=== PATIENT | female | born 1940 ===

== ENCOUNTER 2018-11-28 05:57 | Day surgery (SDC) ==
[2018-11-27 13:09] LABS: Basophils % 0.5 % (0.0-0.8); Eosinophils # 0.1 10*3/uL (0.0-0.87); Eosinophils % 1.8 % (0.00-10.9); Hematocrit 33.7 VOL% (35.7-47.0); Hemoglobin 10.6 GM/DL (12.0-16.0); Immature Granulocytes % 0.2 %; Immature Granulocytes Absolute 0.01 #; Lymphocytes # 1.8 10*3/uL (1.4-4.0); Lymphocytes % 41.9 % (21.3-54.2); Mean Corpuscular HGB Conc 31.5 GM/DL (32-36); Mean Corpuscular Volume 94.7 FL (87-102); Mean Platelet Volume 11.9 FL (9.6-12.0); Monocytes % 10.1 % (1.7-12.7); Neutrophils % 45.5 % (38.7-73.9); Platelet Count 122 T/CUMM (130-400); Red Blood Count 3.56 MC/CUMM (3.8-5.5); Red Cell Distribution Width 13.4 % (9.3-17.3); White Blood Count 4.4 T/CUMM (4-12)
[2018-11-27 13:42] LABS: Albumin 3.3 G/DL (3.4-5.0); Bilirubin,Total 0.7 MG/DL (0.2-1.0); Calcium 9.2 MG/DL (8.5-10.1); Osmolality,Calculated 291.7 MOS/KG (273-304); Total Protein 6.6 G/DL (6.4-8.3)
[~2018-11-28 05:57] MED LIST: FAMOTIDINE 20 MG TABLET ONE; ceFAZolin 1,000 MG VIAL ONE
[2018-11-28] MEDS ORDERED: FAMOTIDINE 20 MG TABLET PO ONE (06:00)
[2018-11-28] MEDS ORDERED: ceFAZolin 1,000 MG in SYRINGE 1 EACH IV ONE (06:00)
[2018-11-28] MEDS: LACTATED RINGERS 1,000 ML IV SCH ×2 (06:48→11:41)
[2018-11-28] MEDS ORDERED: BUPIVACAINE MPF 0.25% /EPI 30 ML VIAL ONE (09:45)
[2018-11-28] MEDS ORDERED: TISSUE ADHESIVE 1 EACH APPLICATOR TOP ONE (09:45)
[2018-11-28] MEDS ORDERED: LIDOCAINE 1%/EPI INJ 20 ML VIAL ONE (09:46)
[2018-11-28] MEDS ORDERED: SEVOFLURANE 1 UNIT/15 MINUTE INH ONE (11:23)
[2018-11-28] MEDS ORDERED: PROPOFOL 200 MG/20 ML VIAL IV ONE (11:23)
[2018-11-28] MEDS ORDERED: ONDANSETRON 4 MG/2 ML VIAL ONE ×2 (11:24→11:56)
[2018-11-28] MEDS ORDERED: ROCURONIUM 100 MG/10 ML VIAL IV ONE (11:24)
[2018-11-28] MEDS ORDERED: DEXAMETHASONE 4 MG/1 ML VIAL ONE (11:24)
[2018-11-28] MEDS ORDERED: fentaNYL 100 MCG/2 ML VIAL ONE (11:24)
[2018-11-28] MEDS ORDERED: ETOMIDATE 40 MG/20 ML VIAL IV ONE (11:24)
[2018-11-28] MEDS ORDERED: ACETAMINOPHEN 1,000 MG/100 ML VIAL IV ONE (11:26)
[2018-11-28] MEDS ORDERED: NEOSTIGMINE 10 MG/10 ML VIAL ONE (11:26)
[2018-11-28] MEDS ORDERED: GLYCOPYRROLATE 0.4 MG/2 ML VIAL ONE (11:26)
[2018-11-28] MEDS ORDERED: PHENYLEPHRINE 1 MG/10 ML SYRINGE IV ONE (11:26)
[2018-11-28] MEDS ORDERED: ONDANSETRON 4 MG/2 ML VIAL IV PRN (11:55)
[2018-11-28] MEDS: HYDROmorphone 2 MG/1 ML VIAL IV PRN ×2 (11:55→13:00)
[2018-11-28] MEDS ORDERED: HYDROmorphone 2 MG/1 ML VIAL ONE (11:56)
[2018-11-28] MEDS: MORPHINE 4 MG/1 ML VIAL IV PRN (14:17)
[2018-11-29] MEDS: MORPHINE 4 MG/1 ML VIAL IV PRN (07:15)
[2018-11-29] MEDS ORDERED: PANTOPRAZOLE 40 MG TABLET PO SCH (09:00)
[2018-11-29] MEDS ORDERED: ASPIRIN CHEW 81 MG TABLET PO SCH (09:00)
[2018-11-29 15:58] VITALS: BP 102/55
== END 2018-11-29 17:45 | disposition home health service (06) ==
LOC: N.SDSINP 05:57 → N.3E 05:57 → N.OR 05:57 → N.3E 13:39 → N.OR 11-29 17:45
PROVIDERS: ATTEND Surgery